=== PATIENT | female | born 1955 | race Caucasian/White ===

== ENCOUNTER 2017-06-27 18:58 | Emergency (ER) | payer OTHER ==
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
[2017-06-27 19:29] VITALS: TEMP 97.7
[2017-06-27 19:36] VITALS: BP 122/60; PULSE 72; RESP 14; O2SAT 96
[2017-06-27] MEDS ORDERED: IBUPROFEN 600 MG TAB PO ONE ×2 (19:41→19:48)
[2017-06-27] MEDS ORDERED: ACETAMINOPHEN 325 MG TAB ONE (19:42)
[2017-06-27] MEDS ORDERED: ACETAMINOPHEN 325 MG TAB PO ONE (19:48)
== END 2017-06-27 20:20 | disposition home or self-care (01) ==
LOC: CED 18:58
DX: S16.1XXA Strain of muscle, fascia and tendon at neck level, initial encounter (principal); S29.012A Strain of muscle and tendon of back wall of thorax, initial encounter; V49.40XA Driver injured in collision with unspecified motor vehicles in traffic accident, initial encounter; Y92.410 Unspecified street and highway as the place of occurrence of the external cause; Y99.8 Other external cause status; Y93.89 Activity, other specified
CPT/HCPCS: 72072-PO; 72125-PO